=== PATIENT | female | born 1950 | race Caucasian/White ===

== ENCOUNTER → 2017-10-22 | Outpatient (CLI) | payer OTHER ==
[~2017-10-22] MED LIST: ACET-1175 PO; IBUP200C80 PEG; TURM500C2 PO
--- NOTE | 2017-10-22 10:03 | DIAGNOSTIC IMAGING REPORT ---
CHEST 2 VIEWS ROUTINE CLINICAL HISTORY: PAT preoperative evaluation COMPARISON STUDY: No previous studies for comparison. FINDINGS: The bones soft tissues and hemidiaphragms are normal. The cardiomediastinal silhouette is normal. The lungs are clear. The pulmonary vasculature is normal. IMPRESSION: Negative chest. The above report was generated using voice recognition software. It may contain grammatical, syntax or spelling errors. Electronically signed by: Daniel Pereyra M.D. 10/22/2017 10:02 AM Dictated Date/Time: 10/22/2017 10:01 AM
[2017-10-22 10:23] LABS: BASO % 0.2 %; BASO ABS # 0.01 K/uL (0-0.2); EOS % 0.4 %; EOS ABS # 0.02 K/uL (0-0.5); HEMATOCRIT 40.8 % (37-47); IG# 0.02 K/uL (0.00-0.02); LYMPH % 18.2 %; LYMPH ABS # 0.95 K/uL (1.2-3.4); MEAN CELL VOLUME 91.5 fL (80-100); MEAN CORPUSCULAR HEMOGLOBIN 31.4 pg (25-34); MEAN CORPUSCULAR HGB CONC 34.3 g/dl (32-36); MEAN PLATELET VOLUME 9.9 fL (7.4-10.4); MONO ABS # 0.21 K/uL (0.11-0.59); NEUT % 76.8 %; NEUT ABS # 4.01 K/uL (1.4-6.5); PLATELET COUNT 174 K/uL (130-400); RED CELL DISTRIBUTION WIDTH CV 12.9 % (11.5-14.5); WHITE BLOOD COUNT 5.22 K/uL (4.8-10.8)
[2017-10-22 10:32] LABS: INR 0.9 (0.9-1.1); PTT PATIENT 26.9 SECONDS (21.0-31.0)
[2017-10-22 11:01] LABS: BLOOD UREA NITROGEN 13 mg/dl (7-18); CALCIUM 8.7 mg/dl (8.5-10.1); CARBON DIOXIDE 27 mmol/L (21-32); CREATININE 0.85 mg/dl (0.60-1.20); GLUCOSE 91 mg/dl (70-99); POTASSIUM 3.9 mmol/L (3.5-5.1); SODIUM 137 mmol/L (136-145)
== END | disposition home or self-care (01) ==
LOC: C.CPL 07:10
PROVIDERS: ATTEND Orthopaedic Surgery
DX: Z01.818 Encounter for other preprocedural examination (principal); Z01.812 Encounter for preprocedural laboratory examination; Z01.810 Encounter for preprocedural cardiovascular examination

== ENCOUNTER 2022-02-06 09:56 | Observation (INO) ==
[2022-02-06] MEDS ORDERED: PIPERACILLIN/TAZOBACTAM 4.5 GM/120 ML BAG IV ONE (10:26)
--- NOTE | 2022-02-06 10:59 | Emergency Department Note ---
Impression & Plan Acute cholecystitis, Abdominal pain ED Provider Note NAME: DAREK MCNAMARA AGE: 71 SEX: F : 1950 ARRIVES VIA: Walk-In INFORMANT: Patient ED PROVIDER(S): Reynold Bird DO CHIEF COMPLAINT: abdominal pain HPI: Patient is a 71-year-old female who presents ER for nausea vomiting which started yesterday in combination with right upper quadrant abdominal pain. She was seen evaluated and had a CT of her belly which was read as normal. This was read by stat read. She was discharged home. Following getting home she did vomit. Pain has been consistent and she had a slice of toast and pain got worse. Currently a 5 out of 10. No vomiting since last night. Denies any dysuria urgency or frequency. No previous abdominal surgeries. No other exacerbating or remitting factors. She had a small sip of coffee this morning. ROS: See above HPI for pertinent positives & negatives. A total of 10 systems reviewed and were otherwise negative. PAST MEDICAL HISTORY:See Below PAST SURGICAL HISTORY:See Below FAMILY HISTORY:See Below SOCIAL HISTORY:See Below HOME MEDICATIONS:See Below ALLERGIES:See Below VITALS:See Below PHYSICAL EXAMINATION: GENERAL: Sitting up in bed, alert, well appearing, well nourished, no distress, non-toxic EYE EXAM: normal conjunctiva. LUNGS: Clear to auscultation. Normal chest wall mechanics HEART: no murmurs, S1 normal and S2 normal ABDOMEN: abdomen soft, TTP in RUQ, normo-active bowel sounds, no masses, no rebound or guarding. UPPER EXTREMITIES: upper extremities are grossly normal. LOWER EXTREMITIES: No pitting edema. NEURO EXAM: Normal sensorium, cranial nerves II-XII grossly intact, normal speech, no gross weakness of arms, no gross weakness of legs. MEDICAL DECISION MAKING: Patient is a 71-year-old female who presents ER for right upper quadrant abdominal pain. She was seen evaluated last night and discharged following a negative CT per stat read. Images were reviewed this morning by radiologist and they called this acute cholecystitis. I was given the report and I contacted the patient requested that I come back. She was understanding. IV was established blood work was obtained. Labs show leukocytosis 15,000. No significant anemia. BMP along with LFTs bilirubin lipase was unremarkable. COVID was negative. Imaging was not repeated. She was given IV Zosyn. Dec lined pain medications. Discussed with the patient and who were updated at bedside. Triage Nursing notes reviewed. Limited review of prior medical records performed Vital Signs: reviewed and remarkable for no significant abnormalities Differential diagnosis: Differential diagnoses includes but is not limited to gastritis, peptic ulcer d isease, GERD, gallbladder disease, pancreatitis, small bowel obstruction, acute coronary syndrome, pericarditis, ischemic bowel, irritable bowel disease, irritable bowel syndrome, appendicitis, diverticulitis, malignancy, hernia, urinary tract infection, torsion, [/ectopic (if female)], perforation, trauma, infectious. ER treatment provided: See below Diagnostics interpreted by me: ECG: none Cardiac Monitoring: An order was placed for continuous cardiac monitoring. The monitor shows a rate of 70 with sinus rhythm. Laboratory studies: As stated above and show below. Imaging studies: CT abdomen pelvis Elodia josue was reviewed Consultation(s): Discussed with Dr. Rafa Torres who evaluate the patient admitted him and will take them to the OR for further treatment. Procedures: none Critical Care: None Past Med/Surg History Medical History (Updated 02/06/22 @ 16:22 by Reynold Bird DO) Anxiety Degenerative disc disease GERD (gastroesophageal reflux disease) Hyperlipidemia Osteoarthritis Surgical History H/O colonoscopy H/O esophagogastroduodenoscopy History of section History of tonsillectomy Social History Smoking Status: Former smoker Tobacco Type: Cigarettes Cigarettes Per Day: 1/4 ppd x 15 years; Hx Alcohol Use: Yes Alcohol type: hard liquor Hx Substance Use: No Preferred Language: Spanish Communication Ability: Effective Beliefs That Will Affect Care: Latter Day Latter Day Beliefs: UNK marital status: Current Living Situation: Spouse Feels Safe at Home: Yes Assistive Devices: Glasses and Walker Allergies Allergies Allergy/AdvReac Type Severity Reaction Status Date / Time gentamicin Allergy RED EYES Verified 12/18/19 07:44 (MED INSTILLED INTO EYES) miconazole Allergy PT STATES Verified 12/18/19 07:44 UNSURE Home Meds Home Medications Medication Instructions Recorded Confirmed acetaminophen 325 mg tablet 325 mg PO UD PRN Pain ##0 10/22/17 12/18/19 bismuth subsalicylate 262 mg/15 mL 0 mg PO ONCE 12/18/19 12/18/19 oral suspension (Pepto-Bismol) Results & Data (ED) Vital Signs Vital Signs - 24 hr 02/06/22 10:12 02/06/22 09:57 02/06/22 11:00 Temperature 37.7 C H Temperature Source Temporal Artery Scan Pulse Rate 92 H 81 Pulse Rate [Finger] Pulse Rhythm [Finger] Pulse Strength [Finger] Respiratory Rate 20 Respiratory Effort / Characteristics Non-Labored Respiratory Depth Normal Respiratory Pattern Blood Pressure 135/69 Blood Pressure [Left Arm] Blood Pressure Mean 91 Blood Pressure Mean [Left Arm] Blood Pressure Position [Left Arm] Pulse Oximetry 95 98 96 Oxygen Delivery Method Room Air Room Air Room Air Sepsis Recent Fever Within 48 Hours No Sepsis New/Unexplained Change in Mental Status N/A Sepsis Action Taken by Nursing No Action Required 02/06/22 11:29 02/06/22 12:35 02/06/22 13:26 Temperature 37.1 C Temperature Source Oral Pulse Rate Pulse Rate [Finger] 78 73 77 Pulse Rhythm [Finger] Regular Pulse Strength [Finger] Normal Respiratory Rate 18 16 20 Respiratory Effort / Characteristics Non-Labored Spontaneous Respiratory Depth Normal Respiratory Pattern Regular Blood Pressure Blood Pressure [Left Arm] 134/71 134/67 145/58 H Blood Pressure Mean Blood Pressure Mean [Left Arm] 92 89 87 Blood Pressure Position [Left Arm] Semi-fowlers Pulse Oximetry 96 97 94 Oxygen Delivery Method Room Air Room Air Room Air Sepsis Recent Fever Within 48 Hours Sepsis New/Unexplained Change in Mental Status Sepsis Action Taken by Nursing Laboratory Data Result diagrams: 02/06/22 11:04 02/06/22 11:04 Lab Results 02/06/22 02/06/22 02/06/22 Range/Units 11:04 11:04 11:15 WBC 15.88 H (4.8-10.8) K/ul RBC 4.71 (3.93-5.22) M/uL Hgb 14.7 (12.0-16.0) g/dl Hct 43.2 (34.1-44.9) % MCV 91.7 (80.0-100.0) fL MCH 31.2 (25.0-34.0) pg MCHC 34.0 (32.0-36.0) g/dL RDW Std Deviation 43.9 (36.4-46.3) fL RDW Coeff of Trevor 13.0 (11.5-14.5) % Plt Count 197 (130-400) K/uL MPV 10.1 (9.4-12.3) fL Immature Gran % (Auto) 0.3 % Neut % (Auto) 89.1 % Lymph % (Auto) 4.5 % [place] % (Auto) 6.0 % Eos % (Auto) 0.0 % Baso % (Auto) 0.1 % Neut # (Auto) 14.14 H (1.4-6.5) K/uL Lymph # (Auto) 0.71 L (1.2-3.4) K/uL Madison # (Auto) 0.96 H (0.24-0.82) K/uL Eos # (Auto) 0.00 (0-0.50) K/uL Baso # (Auto) 0.02 (0-0.2) K/uL Immature Gran # (Auto) 0.05 H (0.00-0.02) K/uL Sodium 135 L (136-145) mmol/L Potassium 3.9 (3.5-5.1) mmol/L Chloride 101 (98-107) mmol/L Carbon Dioxide 24 (21-32) mmol/L Anion Gap 10 (3-11) BUN 12 (6-23) mg/dl Creatinine 0.89 (0.6-1.2) mg/dl Est Cr Clr Drug Dosing 50.8 ml/min Est GFR ( Amer) 76.1 ml/min Est GFR (Non-Af Amer) 65.7 ml/min BUN/Creatinine Ratio 13.5 (10-20) Glucose 101 H (70-99(Fasting)) mg/dl Calcium 9.2 (8.5-10.1) mg/dl Total Bilirubin 0.7 (0.2-1.0) mg/dl AST 33 (13-39) U/L ALT 40 (7-52) U/L Alkaline Phosphatase 81 (34-104) U/L Total Protein 7.4 (6.0-8.3) gm/dl Albumin 4.3 (3.4-5.0) gm/dl Globulin 3.1 (2.5-4.0) gm/dl Albumin/Globulin Ratio 1.4 (0.9-2) Lipase 16 (11-82) U/L SARS-CoV-2, RNA, NAAT NEGATIVE (NEGATIVE) Administered Medications Discontinued Medications Bupivacaine HCl (Bupivacaine 0.5 % 5 Mg/1 Ml Mpf 30ml Vial) Confirm Administered Dose 30 ml .ROUTE .STK-MED ONE Stop: 02/06/22 13:56 Last Admin: 02/06/22 14:56 Dose: 30 ml Documented By: PAMELLA Epinephrine HCl (Epinephrine Inj 1 Mg/Ml Amp) Confirm Administered Dose 1 mg .ROUTE .STK-MED ONE Stop: 02/06/22 13:56 Last Admin: 02/06/22 14:55 Dose: 0.15 mg Documented By: PAMELLA Fentanyl Citrate (Fentanyl Citrate 100 Mcg/2 Ml Vial) 25 mcg IV Q5M PRN PRN Reason: PACU Use Only-Pain Stop: 02/06/22 21:28 Last Admin: 02/06/22 15:29 Dose: 25 mcg Documented By: Admin: 02/06/22 15:24 Dose: 25 mcg Documented By: Admin: 02/06/22 15:19 Dose: 25 mcg Documented By: Admin: 02/06/22 15:14 Dose: 25 mcg Documented By: ELINA Piperacillin Sod/Tazobactam Sod (Zosyn) 4.5 gm in 120 mls @ 240 mls/hr IV NOW ONE Stop: 02/06/22 10:55 Last Infusion: 02/06/22 11:45 Dose: 0 mls/hr Documented By: Admin: 02/06/22 11:13 Dose: 240 mls/hr Documented By: LAZARO Ondansetron HCl (Ondansetron Inj 2 Mg/Ml 2 Ml Vial) 4 mg IV ONCE PRN PRN Reason: PACU Use Only-Nausea/Vomiting Stop: 02/06/22 21:28 Last Admin: 02/06/22 15:14 Dose: 4 mg Documented By: ELINA Discharge Plan Visit Data Chief Complaint: Referred by Doctor Stated Complaint: REFERRED BY DOCTOR ED Provider: Reynold Bird Discharge Problem: Acute cholecystitis, Abdominal pain Patient Disposition: Admitted As Inpatient Discharge Instructions Interventions: ED Discharge Assessment Last Done: 02/06/22 13:32
[2022-02-06 11:21] LABS: Basophils # (auto) 0.02 K/uL (0-0.2); Basophils % (auto) 0.1 %; Hematocrit (blood only) 43.2 % (34.1-44.9); Hemoglobin 14.7 g/dl (12.0-16.0); Immature Granulocytes # (auto) 0.05 K/uL (0.00-0.02); Immature Granulocytes % (auto) 0.3 %; Lymphocytes # (auto) 0.71 K/uL (1.2-3.4); Lymphocytes % (auto) 4.5 %; Mean Corpuscular Hemoglobin 31.2 pg (25.0-34.0); Mean Corpuscular Volume 91.7 fL (80.0-100.0); Mean Platelet Volume 10.1 fL (9.4-12.3); Monocytes # (auto) 0.96 K/uL (0.24-0.82); Neutrophils # (auto) 14.14 K/uL (1.4-6.5); Neutrophils % (auto) 89.1 %; Platelet Count 197 K/uL (130-400); RDW Standard Deviation 43.9 fL (36.4-46.3); Red Blood Count 4.71 M/uL (3.93-5.22); White Blood Count 15.88 K/ul (4.8-10.8)
[2022-02-06 12:06] LABS: Albumin Globulin Ratio 1.4 (0.9-2); Albumin Level 4.3 gm/dl (3.4-5.0); BUN Creatinine Ratio 13.5 (10-20); Bilirubin,Total 0.7 mg/dl (0.2-1.0); Calcium 9.2 mg/dl (8.5-10.1); Creatinine Clr Calc Pharmacy 50.8 ml/min; Est GFR (African American) 76.1 ml/min; Est GFR (Non-African American) 65.7 ml/min; Globulin 3.1 gm/dl (2.5-4.0); Total Protein 7.4 gm/dl (6.0-8.3)
[2022-02-06 12:16] LABS: Potassium 3.9 mmol/L (3.5-5.1)
--- NOTE | 2022-02-06 12:51 | History & Physical Report ---
Date of Service February 06, 2022 Assessment & Plan (1) Acute cholecystitis: Plan: We discussed her options. LFTs are normal. I do recommend laparoscopic cholecystectomy soon as possible. We discussed potential risks which include bleeding infection injury to a bile duct or bile leaks, injury to other organs, DVT, PE, MO, CVA etc. Following her discussion I answered all of her questions. She agrees. We will proceed with laparoscopic cholecystectomy this afternoon. History of Present Illness Primary Care Provider: Олег Shea DO Emily is a pleasant 71-year-old female who started having right upper quadrant pain after eating last night. She was in the emergency room last night and discharged. She was called back in this morning after our radiologist reread the imaging. Imaging is consistent with acute cholecystitis. She has severe right upper quadrant pain as well as nausea. She has had several similar minor attacks in the past but this is by far the most severe. Allergies Allergy/AdvReac Type Severity Reaction Status Date / Time gentamicin Allergy RED EYES Verified 12/18/19 07:44 (MED INSTILLED INTO EYES) miconazole Allergy PT STATES Verified 12/18/19 07:44 UNSURE Home Medications Medication Instructions Recorded Confirmed Type acetaminophen 325 mg tablet 325 mg PO UD PRN Pain ##0 10/22/17 12/18/19 History bismuth subsalicylate 262 mg/15 mL 0 mg PO ONCE 12/18/19 12/18/19 History oral suspension (Pepto-Bismol) Past Med/Surg History Medical History (Updated 02/06/22 @ 12:50 by Rafa Torres DO) Anxiety Degenerative disc disease GERD (gastroesophageal reflux disease) Hyperlipidemia Osteoarthritis Surgical History H/O colonoscopy H/O esophagogastroduodenoscopy History of section History of tonsillectomy Social History Smoking Status: Former smoker Tobacco Type: Cigarettes Cigarettes Per Day: 1/4 ppd x 15 years; Hx Alcohol Use: Yes Alcohol type: hard liquor Hx Substance Use: No Preferred Language: Kyrgyz Communication Ability: Effective Beliefs That Will Affect Care: Jainism Jainism Beliefs: UNK marital status: Current Living Situation: Spouse Feels Safe at Home: Yes Assistive Devices: Glasses and Walker Review of Systems All systems reviewed & are unremarkable except as noted in HPI & below Physical Exam Constitutional: WD/WN, vitals as above no acute distress and not ill appearing Eyes: PERRL, conjunctivae normal, anicteric sclerae EOM intact bilaterally ENMT: external ear and nose normal, oropharynx normal Ears: no hearing impairment Neck: trachea midline, no thyromegaly Respiratory: normal respiratory effort; no respiratory distress and does not use accessory muscles Cardiovascular: Rate/Rhythm: regular rate and regular rhythm Gastrointestinal (Abdomen): Soft. Positive right upper quadrant tenderness. Positive mild guarding. Skin: no rashes, warm and dry Psychiatric: Orientation: alert, oriented x 3 and cooperative Results & Data ([facility]) Vital Signs (Past 12 Hours) Vital Signs Temp Pulse Pulse Resp BP BP Pulse Ox 02/06/22 12:35 73 16 134/67 97 02/06/22 11:29 78 18 134/71 96 02/06/22 11:00 81 96 02/06/22 09:57 98 02/06/22 10:12 37.7 C H 92 H 20 135/69 95 O2 Del Method 02/06/22 12:35 Room Air 02/06/22 11:29 Room Air 02/06/22 11:00 Room Air 02/06/22 09:57 Room Air 02/06/22 10:12 Room Air
[2022-02-06] MEDS ORDERED: ONDANSETRON INJ 2 MG/ML 2 ML VIAL ONE (13:27)
[2022-02-06] MEDS ORDERED: MIDAZOLAM HCL 1 MG/ML 2ML VIAL ONE (13:27)
[2022-02-06] MEDS ORDERED: ePHEDrine sulfate 50 MG/ML SYR ONE (13:27)
[2022-02-06] MEDS ORDERED: PROMETHAZINE HCL 6.25 MG in SODIUM CHLORIDE 0.9% 50 ML IV PRN (13:27)
[2022-02-06] MEDS ORDERED: LIDOCAINE 2% 2 ML VIAL/AMP(20MG/ML) INFIL ONE (13:27)
[2022-02-06] MEDS ORDERED: LARYING-O-JET KIT (LTA) ONE (13:27)
[2022-02-06] MEDS ORDERED: PROPOFOL IV EMULSION 10 MG/ML 20 ML VIAL IV ONE (13:27)
[2022-02-06] MEDS ORDERED: ePHEDrine sulfate 50 MG/ML AMP IV PRN (13:27)
[2022-02-06] MEDS ORDERED: ROCURONIUM BROMIDE 10 MG/ML 5 ML VIAL IV ONE (13:27)
[2022-02-06] MEDS ORDERED: NEOSTIGMINE METHYLSULFATE 1 MG/ML 10ML VIAL ONE (13:27)
[2022-02-06] MEDS ORDERED: fentaNYL citrate 100 MCG/2 ML VIAL ONE (13:27)
[2022-02-06] MEDS ORDERED: DEXAMETHASONE SOD INJ 4 MG/ML VIAL ONE (13:27)
[2022-02-06] MEDS ORDERED: ATROPINE SULFATE 0.1 MG/ML 10ML SYR IV PRN (13:27)
[2022-02-06] MEDS ORDERED: ONDANSETRON INJ 2 MG/ML 2 ML VIAL IV PRN ×2 (13:27→16:12)
[2022-02-06] MEDS ORDERED: GLYCOPYRROLATE 0.2 MG/ML VIAL ONE (13:27)
[2022-02-06] MEDS ORDERED: HYDROmorphone INJ 1 MG/ML SYRINGE IV PRN (13:27)
--- NOTE | 2022-02-06 13:27 | Anesthesiology Consultation ---
Date of Service February 06, 2022 Assessment & Plan (1) Encounter for pre-operative examination: Chart Review Chart Review: Acceptable Risk for Surgery and Patient NOT seen in Pre Admission Testing Consults Requested none Will ensure 6 hour NPO as patient had light breakfast. History Surgery Operation Date: 02/06/22 11:05 Proposed Procedures p Laparoscopic Cholecystectomy - Rafa Torres, DO Height/Weight Height: 5 ft 4 in Weight: 65.3 kg Allergies Allergy/AdvReac Type Severity Reaction Status Date / Time gentamicin Allergy RED EYES Verified 12/18/19 07:44 (MED INSTILLED INTO EYES) miconazole Allergy PT STATES Verified 12/18/19 07:44 UNSURE Medications Home Medications Medication Instructions Recorded Confirmed Last Taken acetaminophen 325 mg tablet 325 mg PO UD PRN Pain ##0 10/22/17 12/18/19 11/17/17 08:35 1000 mg bismuth subsalicylate 262 mg/15 mL 0 mg PO ONCE 12/18/19 12/18/19 12/17/19 oral suspension (Pepto-Bismol) NPO Date Last Intake of Fluids: 02/06/22 Time Last Intake of Fluids: 08:15 Date Last Intake of Solids: 02/06/22 Time Last Intake of Solids: 08:15 Last Intake of Solids Comment: applesauce AND BITE OF TOAST Past Medical History Medical History Anxiety Degenerative disc disease GERD (gastroesophageal reflux disease) Hyperlipidemia Osteoarthritis Exercise / Class Metabolic Activity II 4-5 Yardwork/Stairs/Walk up hill Past Surgical History Surgical History H/O colonoscopy H/O esophagogastroduodenoscopy History of section History of tonsillectomy Left anterior hip: 2018. SAB with sedation. Social History Smoking Status: Former smoker Smoking cigarettes per day: 1/4 ppd x 15 years Hx Alcohol Use: Yes Alcohol type: hard liquor alcohol intake frequency: a few times a week Hx Substance Use: No Physical Exam Vital Signs Last Vital Signs Temp 37.1 C 02/06/22 13:26 Pulse 77 02/06/22 13:26 Resp 20 02/06/22 13:26 BP 145/58 H 02/06/22 13:26 Pulse Ox 94 02/06/22 13:26 O2 Del Method 02/06/22 13:26 Testing Laboratory Results 02/06/22 11:04 02/06/22 11:04
[2022-02-06] MEDS ORDERED: EPINEPHrine INJ 1 MG/ML AMP ONE (13:55)
[2022-02-06] MEDS ORDERED: BUPIVACAINE 0.5 % 5 MG/1 ML MPF 30ML VIAL ONE (13:55)
[2022-02-06] MEDS ORDERED: SUCCINYLCHOLINE CHLORIDE 20 MG/ML 10 ML VIAL IV ONE (13:59)
[2022-02-06] MEDS ORDERED: KETOROLAC 30 MG/ML VIAL ONE (14:41)
[2022-02-06] MEDS ORDERED: SUGAMMADEX SODIUM 200 MG/2 ML VIAL IV ONE (14:49)
[2022-02-06] MEDS: fentaNYL citrate 100 MCG/2 ML VIAL IV PRN ×4 (15:14→15:29)
--- NOTE | 2022-02-06 15:42 | Operative Report ---
PG Post Operative Report Pre & Post Diagnosis Operation Date: 02/06/22 11:05 Pre-Op Diagnosis: Acute cholecystitis Post-Op Diagnosis: Acute cholecystitis I identified the patient and participated in the time-out.: Yes Procedure Operation Date: 02/06/22 11:05 Actual Procedures p Laparoscopic Cholecystectomy(Not Applicable) - Rafa Torres DO Surgeon Rafa Torres DO Manager Film santos Leal Estimated Blood Loss 25 Findings Consistent with Post-Op Diagnosis Specimens gallbladder Description of Procedure After informed consent was obtained the patient was taken to the operating room and placed in the supine position. After successful intubation the abdomen was sterilely prepped and draped in usual fashion. A periumbilical incision was made with an 11 blade scalpel and carried down through the soft tissue using electrocautery. The anterior rectus fascia was opened using electrocautery and 2 #0 Vicryl stay sutures were placed. The peritoneum was elevated with hemostats and incised under direct vision using Metzenbaum scissors. A finger sweep was performed and a 12 mm Atkinson trocar was placed. The abdomen was insufflated to 18 mmHg. The laparoscope was inserted and the abdomen was examined in 360. The gallbladder was acutely inflamed. A subxiphoid 5 mm port and 2 right upper quadrant 5 mm ports were placed under direct vision. The patient was placed in a reverse Trendelenburg position and slightly airplaned to the left. The gallbladder was grasped and elevated superiorly and laterally. It was very distended. A gallbladder needle was used to suction out about 15 to 20 cc of bile. Next, A [place] dissector was used to take down adhesions around the neck of the gallbladder. The cystic duct was identified and skeletonized. It was clipped twice proximally and once distally and transected using a laparoscopic scissor. In similar fashion the cystic artery was identified and skeletonized clipped and divided. The gallbladder was removed from the gallbladder fossa with electrocautery. It was placed into an Endo Catch bag. Thorough irrigation was performed. At the end of the procedure there was adequate hemostasis and no evidence of any bile leaks. A final look around the abdomen showed no other abnormalities. The gallbladder and trochars were all removed and the abdomen was desufflated. The fascia of the camera port was closed using 0 Vicryl in a [id number] fashion. All the wounds were irrigated and closed using 4-0 Monocryl. Marcaine was injected around them for postoperative analgesia and skin glue used as a dressing. The patient was awaken extubated and transferred to recovery in stable condition. My physician's records assistant was present throughout the entire case... helped with prepping the patient. With exposure for trocar placement, as well as retracted the gallbladder throughout the case and also assisted with wound closure and dressing placement. I attest to the content of the Intraoperative Record and any orders documented therein. Any exceptions are noted below.
[2022-02-06] MEDS ORDERED: MoRPHine SULFATE 4 MG/ML 1 ML CARP\\VIAL IV PRN (16:12)
[2022-02-06] MEDS ORDERED: HYDROCODONE/ACETAMOPHEN 5/325MG TAB PO PRN (16:12)
[2022-02-06] MEDS ORDERED: MoRPHine SULFATE 2 MG/ML CARP IV PRN (16:12)
[2022-02-06] MEDS: LACTATED RINGER'S 1,000 ML IV SCH ×2 (16:24→22:27)
--- NOTE | 2022-02-06 16:33 | Electrocardiogram Report ---
Test Reason : Blood Pressure : / mmHG Vent. Rate : 078 BPM Atrial Rate : 078 BPM P-R Int : 134 ms QRS Dur : 092 ms QT Int : 382 ms P-R-T Axes : 040 008 018 degrees QTc Int : 435 ms Normal sinus rhythm Normal ECG When compared with ECG of 22-OCT-2017 09:32, No significant change was found Confirmed by Musa Khan ([id number]) on 02/06/2022 4:33:26 PM Referred By: Provider Outside Confirmed By:Tima Khan
--- NOTE | 2022-02-06 16:37 | Anesthesiology Progress Note ---
Date of Service February 06, 2022 Anesthesia Post Procedure Vital Signs Vital Signs: Temp Pulse Pulse Resp BP BP Pulse Ox 02/06/22 16:00 36.5 C 79 16 124/70 96 02/06/22 15:45 36.4 C L 77 16 137/60 98 02/06/22 15:35 82 16 148/81 H 97 02/06/22 15:25 79 18 137/69 97 02/06/22 15:15 74 18 139/56 L 99 02/06/22 15:05 36.3 C L 71 18 153/67 H 99 02/06/22 13:26 37.1 C 77 20 145/58 H 94 02/06/22 12:35 73 16 134/67 97 02/06/22 11:29 78 18 134/71 96 02/06/22 11:00 81 96 02/06/22 09:57 98 02/06/22 10:12 37.7 C H 92 H 20 135/69 95 O2 Del Method O2 Flow Rate 02/06/22 16:00 Nasal Cannula 2 02/06/22 15:45 Nasal Cannula 2 02/06/22 15:35 Oxymask 5 02/06/22 15:25 Oxymask 5 02/06/22 15:15 Oxymask 5 02/06/22 15:05 Oxymask 5 02/06/22 13:26 Room Air 02/06/22 12:35 Room Air 02/06/22 11:29 Room Air 02/06/22 11:00 Room Air 02/06/22 09:57 Room Air 02/06/22 10:12 Room Air Pain Intensity Right Upper Abdomen: Pain Intensity: 4 Transfer of Care Handoff Completed per policy Notes Mental Status: alert / awake / arousable and participated in evaluation Patient Amnestic to Procedure: Yes Nausea / Vomiting: adequately controlled Pain: adequately controlled Airway Patency, RR, SpO2: stable & adequate BP & HR: stable & adequate Hydration State: stable & adequate Anesthetic Complications: no major complications apparent and Pt Satisfied with anesthetic care
[2022-02-06 22:40] LABS: Appearance Urine Clear (Clear); Bacteria Urine Automated Negative (Negative); Bilirubin Urine Negative (Negative); Blood Urine Trace (Negative); Cast Urine Automated 0 /lpf (0-5); Color Urine Yellow; Glucose Urine UA Negative (Negative); Ketones Urine Negative (Negative); Leukocyte Esterase Urine Negative (Negative); Nitrite Urine Negative (Negative); Protein Urine Negative (Negative); RBC Urine Automated 0-4 /hpf (0-4); Specific Gravity Urine 1.005 (1.000-1.030); Urobilinogen Urine Negative (Negative)
[2022-02-06] MEDS: HYDROCODONE/ACETAMOPHEN 5/325MG TAB PO PRN (23:45)
[2022-02-07] MEDS: HYDROCODONE/ACETAMOPHEN 5/325MG TAB PO PRN ×2 (05:22→10:14)
--- NOTE | 2022-02-07 09:29 | Surgery Progress Note ---
Date of Service February 07, 2022 Assessment & Plan (1) Acute cholecystitis: Plan: POD#1 laparoscopic cholecystectomy for cholecystitis labs this AM are pending will advance diet to regular this AM pain controlled on po medications pending progress this AM will anticipate discharge to home later today f/u in clinic with Dr. Torres in 1-2 weeks As above. Patient feeling okay. Surgical discomfort managed. Instructions given. Follow-up with me in 1 to 2 weeks. Admission and Anticipated Discharge Date Admission Date: February 06, 2022 Subjective Patient feeling well this AM. Some incisional soreness, mostly around RUQ port site. No nausea/vomiting. No other complaints Physical Exam Physical Exam: awake/alert, no distress Gastrointestinal (Abdomen): Inspection/Auscultation: + abdomen distended (mild) and + abdominal surgical incision (c/d/i with skin glue) Percussion/Palpation: + abdomen tender (mild ke-incisional discomfort to palpation) and abdomen soft Results & Data ([facility]) Vital Signs (Past 12 Hours) Vital Signs Temp Pulse Resp BP Pulse Ox O2 Del Method 02/07/22 07:52 36.5 C 81 18 94/54 L 90 Room Air 02/07/22 05:13 36.8 C 75 16 105/60 94 Room Air 02/07/22 03:26 36.8 C 75 16 96/55 L 94 Room Air 02/06/22 23:37 36.8 C 74 16 107/56 L 94 Room Air 02/06/22 22:10 37.0 C 75 16 106/60 93 Room Air PG Care Time/CCT Total # of Minutes Spent Total Time Spent with Patient: Total time spent is greater than 50% in coordination of care (as documented) at patient's floor/unit and/or counseling patient: Coding Level of Care Code None Diagnoses Acute cholecystitis K81.0
[2022-02-07] MEDS ORDERED: LACTATED RINGER'S 1,000 ML IV SCH (09:30)
[2022-02-07 10:50] LABS: Basophils # (auto) 0.02 K/uL (0-0.2); Basophils % (auto) 0.2 %; Eosinophils # (auto) 0.01 K/uL (0-0.50); Eosinophils % (auto) 0.1 %; Hematocrit (blood only) 35.3 % (34.1-44.9); Hemoglobin 11.8 g/dl (12.0-16.0); Immature Granulocytes % (auto) 0.8 %; Lymphocytes # (auto) 0.95 K/uL (1.2-3.4); Lymphocytes % (auto) 7.5 %; Mean Corpuscular Hemoglobin 31.1 pg (25.0-34.0); Mean Corpuscular Hgb Conc 33.4 g/dL (32.0-36.0); Mean Corpuscular Volume 92.9 fL (80.0-100.0); Mean Platelet Volume 10.1 fL (9.4-12.3); Monocytes # (auto) 0.72 K/uL (0.24-0.82); Monocytes % (auto) 5.7 %; Neutrophils # (auto) 10.89 K/uL (1.4-6.5); Neutrophils % (auto) 85.7 %; Platelet Count 144 K/uL (130-400); RDW Coefficient of Variation 13.2 % (11.5-14.5); White Blood Count 12.69 K/ul (4.8-10.8)
[2022-02-07 11:17] LABS: BUN Creatinine Ratio 14.8 (10-20); Calcium 8.4 mg/dl (8.5-10.1); Creatinine Clr Calc Pharmacy 60.7 ml/min; Est GFR (African American) 85.3 ml/min; Est GFR (Non-African American) 73.6 ml/min; Potassium 3.8 mmol/L (3.5-5.1)
== END 2022-02-07 11:57 | disposition home or self-care (01) ==
LOC: ED 09:56 → 3N 09:56